=== PATIENT | female | born 1985 | race Hispanic/Latino ===

== ENCOUNTER 2016-09-28 16:49 | Emergency (ER) | payer SELFPAY ==
[~2016-09-28] VITALS: Ht 157.5 cm; Wt 72.0 kg
[~2016-09-28 16:49] MED LIST: CIPROFLOXACN500 MG PO; LORTAB 10 PO; MIRALAX3350 N1 PO; NAPROSYN500 MG PO; NO HOME MEDICATIONS; NO MEDS; PODOFILOX0.5 % EX; PRILOSEC20 MG/CAP PO; ULTRAM50 M1 PO; ZOFRAN ODT4 MG PO; ZOFRAN ODT8 MG SL
[2016-09-28 18:11] LABS: HEMATOCRIT 38.8 % (37.0-47.0); HEMOGLOBIN 12.9 g/dl (12.0-16.0); IMMATURE GRANULOCYTES 0.4 % (0.0-1.0); MEAN CELL VOLUME 87.2 fL CALC (80.0-100.0); MEAN CORPUSCULAR HGB CONC 33.2 g/L CALC (32.0-36.0); NEUT# 3.65 thou/uL (2.00-7.15); RED BLOOD COUNT 4.45 mill/uL (4.20-5.60); RED CELL DISTRI WIDTH 11.5 % (11.5-15.5)
[2016-09-28 18:13] LABS: URINE BILIRUBIN - DIPSTICK NEGATIVE (NEGATIVE); URINE BLOOD DIPSTICK NEGATIVE (NEGATIVE); URINE CLARITY CLEAR; URINE COLOR YELLOW; URINE GLUCOSE - DIPSTICK NEGATIVE (NEGATIVE); URINE KETONE NEGATIVE (NEGATIVE); URINE LEUK ESTERASE NEGATIVE (NEGATIVE); URINE NITRITE - DIPSTICK NEGATIVE (Negative); URINE PROTEIN - DIPSTICK NEGATIVE (NEG-TRACE); URINE UROBILINOGEN - DIPSTICK 0.2 E.U./dL (0.2)
[2016-09-28 18:37] LABS: ALBUMIN 4.6 g/dL (3.2-5.0); ALKALINE PHOSPHATASE 83 u/l (38-126); AMYLASE 55 u/l (30-110); ANION GAP 17 (6-22 (CALC)); BILIRUBIN, TOTAL 0.4 mg/dL (0.0-1.4); BUN 9 mg/dL (7-17); BUN/CREATININE RATIO 15 (12-20 (CALC)); CALCIUM 9.8 mg/dL (8.4-10.2); CARBON DIOXIDE 29 mmol/l (22-30); CHLORIDE 102 mmol/l (95-108); CREATININE 0.6 mg/dL (0.5-1.0); GFR > 60 ML/MIN (>=60 (CALC)); GFR FOR AFR.AMER. > 60 ML/MIN (>=60 (CALC)); GLUCOSE 117 mg/dL (65-105); LIPASE 270 u/l (23-300); POTASSIUM 3.9 mmol/l (3.5-5.1); SGOT/AST 57 u/l (14-36); SGPT/ALT 102 u/l (9-52); SODIUM 144 mmol/l (137-146); TOTAL PROTEIN 8.6 g/dL (6.3-8.2)
[2016-09-29 01:25] VITALS: BP 100/66
== END 2016-09-29 01:25 | disposition home or self-care (01) | DRG 392 ==
LOC: ED 16:49
PROVIDERS: Emergency Medicine
DX: R10.9 Unspecified abdominal pain (principal)